=== PATIENT | female | born 1985 | race Caucasian/White ===

== ENCOUNTER 2018-11-14 21:38 | Emergency (ER) | payer OTHER ==
[~2018-11-14] VITALS: Ht 154.9 cm; Wt 56.8 kg
[2018-11-14] MEDS ORDERED: IPRATROPIUM BROMIDE 0.5 MG/2.5 ML NEB SOLUTION NEB ONE (21:45)
[2018-11-14] MEDS ORDERED: ALBUTEROL SULFATE 5 MG/ML 20 ML NEB SOLN [BULK] NEB ONE (21:45)
[2018-11-14] MEDS ORDERED: ALBU8HFA IH (21:48)
[2018-11-14] MEDS ORDERED: 0.9% SODIUM CHLORIDE 5 ML NEB SOLUTION NEB ONE ×2 (21:48→21:49)
[2018-11-14] MEDS ORDERED: ALBUTEROL SULFATE HFA 90 MCG/PUFF 8 GM INHALER IH ONE (22:00)
[2018-11-14 23:19] VITALS: BP 121/69
== END 2018-11-14 23:22 | disposition home or self-care (01) ==
LOC: EMS 21:39
DX: J45.901 Unspecified asthma with (acute) exacerbation (principal)
CPT/HCPCS: 94644; J3535

== ENCOUNTER 2024-11-22 14:26 | Emergency (ER) | payer OTHER ==
[~2024-11-22] VITALS: Ht 149.9 cm; Wt 56.8 kg
[~2024-11-22 14:26] MED LIST: ALBU8HFA IH
[2024-11-22 14:31] VITALS: TEMP 99.3
[2024-11-22] MEDS ORDERED: BECL10.6 IH (14:34)
[2024-11-22] MEDS: ALBUTEROL SULFATE HFA 90 MCG/PUFF 8 GM INHALER IH ONE (15:07)
[2024-11-22] MEDS: IPRATROPIUM BROMIDE 0.5 MG/2.5 ML NEB SOLUTION NEB ONE (15:07)
[2024-11-22] MEDS: ALBUTEROL SULFATE 2.5 MG/0.5 ML NEB SOLUTION NEB ONE (15:07)
[2024-11-22] MEDS: PredniSONE 20 MG TABLET PO ONE (15:08)
[2024-11-22 15:12] VITALS: PULSE 80; PULSE 90; RESP 16; RESP 18; O2SAT 97
[2024-11-22 15:28] VITALS: PULSE 85; RESP 16; O2SAT 100
[2024-11-22 15:28] LABS: COVID AG,FIA SOURCE NASAL SWAB
[2024-11-22 15:49] LABS: INFLUENZA TYPE A NEGATIVE FOR TYPE A (NEGATIVE); INFLUENZA TYPE B NEGATIVE FOR TYPE B (NEGATIVE); SARS-COV2 (COVID) ANTIGEN,FIA Negative (Negative)
[2024-11-22] MEDS ORDERED: PRED-554 PO (16:14)
[2024-11-22 16:25] VITALS: BP 112/55; PULSE 82; RESP 16; O2SAT 100
== END 2024-11-22 16:26 | disposition home or self-care (01) ==
LOC: EMS 14:26
DX: B34.9 Viral infection, unspecified (principal); J45.909 Unspecified asthma, uncomplicated; Z79.51 Long term (current) use of inhaled steroids; Z20.822 Contact with and (suspected) exposure to COVID-19
CPT/HCPCS: 99283; 87426; 87430; 87804; 94640; J7512; J3535